=== PATIENT | male | born 1970 | race Caucasian/White ===

== ENCOUNTER → 2016-11-14 | Outpatient (CLI) | payer BC ==
--- NOTE | 2016-11-14 12:23 | DI ---
RIGHT HAND, 11/14/2016 10:30 AM: Clinical History: Right hand pain. Previous Exam: None at this facility. 3 views are submitted. There is mild soft tissue swelling over the dorsal aspect of the metacarpal myra fidel. There is no fracture or dislocation or radiopaque foreign body. Reading: Soft tissue swelling over the dorsal aspect of the hand. The exam is otherwise normal.
== END ==
LOC: ORTHO 10:35
PROVIDERS: ATTEND Orthopaedic Surgery
DX: M79.641 Pain in right hand (principal); M79.89 Other specified soft tissue disorders; S61.451A Open bite of right hand, initial encounter; W54.0XXA Bitten by dog, initial encounter
CPT/HCPCS: 73130

== ENCOUNTER → 2017-01-31 | Outpatient (CLI) | payer BC, OTHER ==
[2017-01-31 08:43] LABS: BLOOD UREA NITROGEN 17 mg/dL (7-22); BUN/CREATININE RATIO 24.28 (6-20); CHOL/HDL RATIO 4.82 RATIO (0-4.0); EST GLOMERULAR FILTRATION > 60 (>60 ml/min/1.73m(2)); HDL CHOLESTEROL 39 mg/dL (40-150); SERUM ALBUMIN 4.3 g/dL (3.5-4.8); SERUM CHOLESTEROL 188 mg/dL (120-200)
--- NOTE | 2017-01-31 09:44 | DI ---
THYROID ULTRASOUND, 01/31/2017 8:04 AM Clinical History: Thyromegaly. Previous Exam: None. Scans are performed through both lobes of the thyroid gland in multiple projections with the high res olution linear array probe. Color Doppler ultrasound is also performed. The right lobe of the thyroid gland is at the upper limits of normal and the left side is well within normal limits. The right and left lobes measure 21 x 22 x 55 mm, and 15 x 14 x 45 mm, in the AP, tra nsverse, and longitudinal dimensions, respectively. In the right lobe of the thyroid gland, there are 2 hypoechoic slightly inhomogeneous nodules. One is located in the upper pole and the other is in th e lower pole. The upper pole nodule measures approximately 6 mm in diameter and a lower pole nodule m easures 5 mm in diameter. Both levels have the suggestion of a "capsule" in these lesions are consist ent with benign hyperplastic nodules. Multiple small 2 mm hypoechoic areas are present bilaterally co nsistent with small benign colloid cysts. Readin. There is mild asymmetry with the right lobe being larger than the left lobe but still within the upper limits of normal. Small benign colloid cyst are present bilaterally. 2. There are 2 nodules in the right lobe. There is one in the upper pole and another in the lower po le and these are consistent with benign hyperplastic nodules. A followup thyroid ultrasound in about 6 months is recommended to monitor both lesions and to be certain that they are not changing in appea mavis.
== END ==
LOC: US 08:00
PROVIDERS: ATTEND Family Medicine
DX: E11.9 Type 2 diabetes mellitus without complications (principal); Z79.4 Long term (current) use of insulin; I10 Essential (primary) hypertension; E01.0 Iodine-deficiency related diffuse (endemic) goiter; Z72.0 Tobacco use
CPT/HCPCS: 36415; 76536; 80053; 80061; 83036; 84443

== ENCOUNTER → 2017-06-12 | Outpatient (CLI) | payer BC ==
--- NOTE | 2017-06-12 14:03 | DI ---
LUMBAR SPINE SERIES, 06/12/2017 10:09 AM: Clinical History: Bilateral low back pain with sciatica. Previous Exam: None at this facility. 3 routine upright views are submitted. The vertebral bodies are of normal height and size. There is m ild L2-3 disc space narrowing, and the remaining lumbar disc spaces are of normal height. The pedicle s and posterior elements are unremarkable. Both SI joints are normal. Reading: Mild chronic L2-3 disc space narrowing. The study is otherwise normal.
== END ==
LOC: ORTHO 10:18
PROVIDERS: ATTEND Orthopaedic Surgery
DX: M54.42 Lumbago with sciatica, left side (principal); M54.41 Lumbago with sciatica, right side
CPT/HCPCS: 72100